=== PATIENT | female | born 1970 | race Caucasian/White ===

== ENCOUNTER 2016-12-25 03:07 | Emergency (ER) | payer MEDICAID, OTHER ==
[~2016-12-25] VITALS: Ht 160 cm; Wt 71.0 kg
[~2016-12-25 03:07] MED LIST: BUSP10 PO; IBUP800T23 PO; NICO21T T-DERMAL
[2016-12-25 03:09] VITALS: BP 123/74; PULSE 66; RESP 14; TEMP 97.9; O2SAT 96
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
[2016-12-25] MEDS ORDERED: ROBA500T PO (06:11)
[2016-12-25] MEDS ORDERED: DICL75TA PO (06:11)
== END 2016-12-25 06:29 | disposition home or self-care (01) ==
LOC: NEPB 03:07
DX: M54.5 Low back pain (principal); K21.9 Gastro-esophageal reflux disease without esophagitis; Z87.442 Personal history of urinary calculi; F17.210 Nicotine dependence, cigarettes, uncomplicated
CPT/HCPCS: 99283

== ENCOUNTER 2017-03-31 17:26 | Inpatient (IN) | payer MEDICAID ==
[~2017-03-31] VITALS: Ht 160 cm; Wt 70.0 kg
[~2017-03-31 17:26] MED LIST changes: +DICL75TA PO; +ROBA500T PO
[2017-03-31 17:28] VITALS: BP 114/62; PULSE 74; RESP 16; TEMP 99.3; O2SAT 99
--- NOTE | 2017-03-31 17:37 | PD ---
Physical Exam Time Seen by Provider: 17:35 Narrative 46yo F c/o left sided back pain w/ SOB that started 5am this morning. C/o Jimenez also. Pain is worse w/movement. +chest pain earlier; denies currently. Denies fever, cough. Patient seen in triage. VS reviewed. Awaiting bed placement. Data Data Last Documented VS Vital Signs Date Time Temp Pulse Resp B/P Pulse Ox O2 Delivery O2 Flow Rate FiO2 03/31/17 17:28 99.3 74 16 114/62 99 Room Air MDM Supervised Visit with ISIDORO: Betsy Sullivan Mar 31, 2017 17:37
[2017-03-31 20:11] VITALS: RESP 18; O2SAT 100
[2017-03-31] MEDS ORDERED: MORPHINE SULFATE 4 MG/ML INJ IV PUSH ONE ×2 (20:15→21:30)
[2017-03-31] MEDS ORDERED: SODIUM CHLORIDE 0.9% FLUSH 10 ML FLUSH IV FLUSH PRN ×2 (20:15→22:45)
[2017-03-31] MEDS ORDERED: ONDANSETRON HCL 4 MG/2 ML VIAL IVP ONE (20:15)
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
--- NOTE | 2017-03-31 20:29 | RADRPT ---
EXAM DATE/TIME: 03/31/2017 20:12 [facility] COMPARISON: No previous studies available for comparison. INDICATIONS : Short of breath. MEDICAL HISTORY : None. SURGICAL HISTORY : None. ENCOUNTER: Initial ACUITY: 1 day PAIN SCORE: 0/10 LOCATION: Bilateral chest FINDINGS: A single view of the chest demonstrates the lungs to be symmetrically aerated without evidence of mas s, infiltrate or effusion. The cardiomediastinal contours are unremarkable. Osseous structures are intact. CONCLUSION: No evidence of acute cardiopulmonary disease. Gordo De Jesus MD on March 31, 2017 at 20:27 Board Certified Radiologist. This report was verified electronically.
[2017-03-31 20:32] LABS: AUTOMATED NEUTROPHIL # 15.8 TH/MM3 (1.8-7.7); BASOPHIL # 0.1 TH/MM3 (0-0.2); BASOPHIL % 0.4 % (0.0-2.0); EOSINOPHIL # 0.1 TH/MM3 (0-0.4); EOSINOPHIL % 0.5 % (0.0-4.0); HEMATOCRIT 44.4 % (35.0-46.0); HEMO FLAGS DIFF FINAL; LYMPH % 10.2 % (9.0-44.0); LYMPHOCYTE # 1.9 TH/MM3 (1.0-4.8); MEAN CELL VOLUME 85.4 FL (80.0-100.0); MEAN CORPUSCULAR HEMOGLOBIN 28.4 PG (27.0-34.0); MEAN CORPUSCULAR HGB CONC 33.3 % (32.0-36.0); MONO % 6.3 % (0.0-8.0); NEUT % 82.6 % (16.0-70.0); PLATELET COUNT 246 TH/MM3 (150-450); RED CELL DISTRIBUTION WIDTH 14.5 % (11.6-17.2); WHITE BLOOD COUNT 19.1 TH/MM3 (4.0-11.0)
[2017-03-31 20:45] LABS: APTT (PATIENT) 31.5 SEC (24.3-30.1); INTERNATIONAL NORMALIZED RATIO 1.1 RATIO; PROTHROMBIN TIME - PATIENT 12.2 SEC (9.8-11.6)
[2017-03-31 20:47] LABS: BACTERIA, URINE MOD /hpf; BLOOD, URINE MOD (NEG); COMMENT (UR) CULTURE INDICATED; CULTURE IF INDICATED CULTURE INDICATED; GLUCOSE,URINE NEG (NEG); HYALINE CAST, URINE 3 /lpf (RARE); KETONE, URINE NEG (NEG); MUCUS URINE FEW /lpf (OCC); NITRITE,URINE NEG (NEG); SQUAMOUS EPITHELIAL CELL URINE 6 /hpf (0-5); TRANSITIONAL EPI CELLS, URINE 1 /hpf; URINE COLOR YELLOW (YELLW/STRAW)
[2017-03-31 20:58] LABS: ALT (GPT) 17 U/L (10-53); ANION GAP 12 MEQ/L (5-15); AST (GOT) 18 U/L (15-37); BICARBONATE 21.5 MEQ/L (21.0-32.0); BLOOD UREA NITROGEN 12 MG/DL (7-18); CHLORIDE 106 MEQ/L (98-107); GLOMERULAR FILTRATION RATE 75 ML/MIN (>89); MAGNESIUM 2.2 MG/DL (1.5-2.5); POTASSIUM 3.5 MEQ/L (3.5-5.1); SODIUM (NA) 139 MEQ/L (136-145)
[2017-03-31 21:03] LABS: ALKALINE PHOSPHATASE 97 U/L (45-117); CREATINE KINASE 139 U/L (26-192); TOTAL BILIRUBIN ADULT 1.1 MG/DL (0.2-1.0)
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
[2017-03-31 21:12] VITALS: BP 106/60; PULSE 64; RESP 18; O2SAT 97
[2017-03-31 21:15] LABS: CKMB 0.7 NG/ML (0.5-3.6)
[2017-03-31] MEDS ORDERED: KETOROLAC TROMETHAMINE 30 MG/ML (IVP) VIAL IV PUSH ONE (21:30)
[2017-03-31] MEDS ORDERED: cefTRIAXone INJ 1,000 MG in SODIUM CHLORIDE 0.9% INJ 100 ML IV ONE (21:30)
[2017-03-31] MEDS ORDERED: CIPROFLOXACIN 500 MG TAB PO ONE (21:30)
[2017-03-31] MEDS ORDERED: SODIUM CHLOR 0.9% 1000 ML INJ 1,000 ML IV ONE (21:45)
[2017-03-31] MEDS: SODIUM CHLOR 0.9% 1000 ML INJ 1,000 ML IV SCH (22:44)
[2017-03-31] MEDS ORDERED: NALOXONE HCL 0.4 MG/ML AMP IV PRN (22:45)
[2017-03-31 23:32] VITALS: BP 102/57; PULSE 60; RESP 18; O2SAT 100
[2017-04-01] VITALS (9 sets, daily range): BP systolic 91–117; BP diastolic 54–71; PULSE 49–65; RESP 18; TEMP 98.2–99.6; O2SAT 95–98
--- NOTE | 2017-04-01 00:10 | PD ---
Data Data Last Documented VS Vital Signs Date Time Temp Pulse Resp B/P Pulse Ox O2 Delivery O2 Flow Rate FiO2 03/31/17 21:12 64 18 106/60 97 Room Air 03/31/17 17:28 99.3 Orders Complete Blood Count With Diff (03/31/17 20:07) Comprehensive Metabolic Panel (03/31/17 20:07) Lipase (03/31/17 20:07) Prothrombin Time / Inr (Pt) (03/31/17 20:07) Act Partial Throm Time (Ptt) (03/31/17 20:07) Urinalysis - C+S If Indicated (03/31/17 20:07) Ct Abd/Pel W/O Iv Contrast (03/31/17 20:07) Iv Access Insert/Monitor (03/31/17 20:07) Ecg Monitoring (03/31/17 20:07) Oximetry (03/31/17 20:07) Morphine Inj (Morphine Inj) (03/31/17 20:15) Ondansetron Inj (Zofran Inj) (03/31/17 20:15) Sodium Chloride 0.9% Flush (Ns Flush) (03/31/17 20:15) Electrocardiogram (03/31/17 20:07) Chest, Single Ap (03/31/17 20:07) Ckmb (Isoenzyme) Profile (03/31/17 20:07) Magnesium (Mg) (03/31/17 20:07) Troponin I (03/31/17 20:07) Urine Culture (03/31/17 20:15) CKMB (03/31/17 20:15) CKMB% (03/31/17 20:15) Ceftriaxone Inj (Rocephin Inj) (03/31/17 21:30) Morphine Inj (Morphine Inj) (03/31/17 21:30) Ketorolac Inj (Toradol Inj) (03/31/17 21:30) Ciprofloxacin (Cipro) (03/31/17 21:30) Blood Culture (03/31/17 21:30) Sodium Chlor 0.9% 1000 Ml Inj (Ns 1000 M (03/31/17 21:45) Admit Order (Ed Use Only) (03/31/17 22:31) Place In Observation (03/31/17 ) Vital Signs (Adult) Q4H (03/31/17 22:32) Activity Oob With Assistance (03/31/17 22:32) Farm Specialist / Telemetry .CONTINUOUS (03/31/17 22:32) Diet Heart Healthy (04/01/17 Breakfast) Sodium Chlor 0.9% 1000 Ml Inj (Ns 1000 M (03/31/17 23:00) Sodium Chloride 0.9% Flush (Ns Flush) (03/31/17 22:45) Sodium Chloride 0.9% Flush (Ns Flush) (04/01/17 09:00) Basic Metabolic Panel (Bmp) (04/01/17 06:00) Complete Blood Count With Diff (04/01/17 06:00) Case Management Consult (03/31/17 22:32) Naloxone Inj (Narcan Inj) (03/31/17 22:45) Labs Laboratory Tests Test 03/31/17 20:15 White Blood Count 19.1 TH/MM3 Red Blood Count 5.20 MIL/MM3 Hemoglobin 14.8 GM/DL Hematocrit 44.4 % Mean Corpuscular Volume 85.4 FL Mean Corpuscular Hemoglobin 28.4 PG Mean Corpuscular Hemoglobin 33.3 % Concent Red Cell Distribution Width 14.5 % Platelet Count 246 TH/MM3 Mean Platelet Volume 8.2 FL Neutrophils (%) (Auto) 82.6 % Lymphocytes (%) (Auto) 10.2 % Monocytes (%) (Auto) 6.3 % Eosinophils (%) (Auto) 0.5 % Basophils (%) (Auto) 0.4 % Neutrophils # (Auto) 15.8 TH/MM3 Lymphocytes # (Auto) 1.9 TH/MM3 Monocytes # (Auto) 1.2 TH/MM3 Eosinophils # (Auto) 0.1 TH/MM3 Basophils # (Auto) 0.1 TH/MM3 CBC Comment DIFF FINAL Differential Comment Prothrombin Time 12.2 SEC Prothromb Time International 1.1 RATIO Ratio Activated Partial 31.5 SEC Thromboplast Time Urine Color YELLOW Urine Turbidity HAZY Urine pH 6.0 Urine Specific [place] 1.022 Urine Protein 30 mg/dL Urine Glucose (UA) NEG mg/dL Urine Ketones NEG mg/dL Urine Occult Blood MOD Urine Nitrite NEG Urine Bilirubin NEG Urine Urobilinogen 2.0 MG/DL Urine Leukocyte Esterase SMALL Urine RBC 4 /hpf Urine WBC 13 /hpf Urine Squamous Epithelial 6 /hpf Cells Urine Transitional Epithelial 1 /hpf Cells Urine Bacteria MOD /hpf Urine Hyaline Casts 3 /lpf Urine Mucus FEW /lpf Microscopic Urinalysis Comment CULTURE INDICATED Sodium Level 139 MEQ/L Potassium Level 3.5 MEQ/L Chloride Level 106 MEQ/L Carbon Dioxide Level 21.5 MEQ/L Anion Gap 12 MEQ/L Blood Urea Nitrogen 12 MG/DL Creatinine 0.81 MG/DL Estimat Glomerular Filtration 75 ML/MIN Rate Random Glucose 83 MG/DL Calcium Level 8.8 MG/DL Magnesium Level 2.2 MG/DL Total Bilirubin 1.1 MG/DL Aspartate Amino Transf 18 U/L (AST/SGOT) Alanine Aminotransferase 17 U/L (ALT/SGPT) Alkaline Phosphatase 97 U/L Total Creatine Kinase 139 U/L Creatine Kinase MB 0.7 NG/ML Troponin I LESS THAN 0.02 NG/ML Total Protein 7.8 GM/DL Albumin 3.6 GM/DL Lipase 120 U/L MDM Supervised Visit with ISIDORO: Yes Narrative Course The history, exam, and medical decision-making in the associated midlevel provider note were completed with my assistance. I reviewed and agree with the findings presented. I attest that I had a [id number] encounter with the patient on the same day, and personally performed and documented my assessment and findings in the medical record. *My assessment and Findings: This is a 46-year-old female with a history of IV drug use although she reports she hasn't used in 2 years who presents to the emergency department with flank pain and nausea. Patient has a leukocytosis of 19. CT imaging demonstrates pyelonephritis. Patient will be admitted given her history of IV drug use, and poor pain control here in the emergency department. Diagnosis Primary Impression: Pyelonephritis Additional Impression: Pancreatic lesion Scripts No Active Prescriptions or Reported Meds Condition: Stable Keisha Juan MD Apr 01, 2017 00:09
[2017-04-01] MEDS: KETOROLAC TROMETHAMINE 30 MG/ML (IVP) VIAL IV PUSH PRN ×2 (04:26→10:09)
--- NOTE | 2017-04-01 05:08 | HHI.HP ---
[facility] Tobi Norris Admission Diagnosis pyelonephritis, pancreatic lesion, history of IV drug use Diagnoses: Chief Complaint: abdominal pain, back pain Travel History International Travel<30 Days: No Contact w/Intl Traveler <30 Da: No Traveled to Known Affected Are: No History of Present Illness History patient, ER PA communication, interview of the records. Patient reported that she came to the hospital because yesterday, she all of a sudden started having left flank pain with left abdominal pain. She denies any fever. Denies any nausea/vomiting/diarrhea. Denies burning urination or pain on urination. she never had similar pain like this before. Apart from the above, patient denies any chest pain/shortness of breath/ palpitations/dizziness/focal weakness. In the emergency room, imaging studies revealed pyelonephritis. Review of Systems Except as stated in HPI: all other systems reviewed are Neg Past Family Social History Past Medical History none Past Surgical History 2 c sections tmj colostomy and reversal x 2 Allergies: Coded Allergies: MRI PRECAUTION (Verified Allergy, Severe, BULLET IN LOW BACK AND L. LEG, ) Family History depression Social History a pack a day no drinking used to use drugs, quit 2 yrs ago Physical Exam Vital Signs Vital Signs Date Time Temp Pulse Resp B/P Pulse Ox O2 Delivery O2 Flow Rate FiO2 04/01/17 03:38 99.1 64 18 96/56 95 04/01/17 00:31 99.2 61 18 91/54 98 04/01/17 00:30 57 03/31/17 23:32 60 18 102/57 100 Room Air 03/31/17 21:12 64 18 106/60 97 Room Air 03/31/17 20:11 18 100 Room Air 03/31/17 17:28 99.3 74 16 114/62 99 Room Air Physical Exam GENERAL: This is a well-nourished, well-developed patient, in no apparent distress. SKIN: No rashes, ecchymoses or lesions. Cool and dry. HEAD: Atraumatic. Normocephalic. No temporal or scalp tenderness. EYES: No scleral icterus. No injection or drainage. ENT: Nose without bleeding, purulent drainage or septal hematoma. Airway patent. NECK: Trachea midline. No JVD CARDIOVASCULAR: Regular rate and rhythm without murmurs, gallops, or rubs. RESPIRATORY: Clear to auscultation. Breath sounds equal bilaterally. No wheezes , rales, or rhonchi. GASTROINTESTINAL: Abdomen soft, tenderness at left lower quadrant and left flank, nondistended. No guarding. MUSCULOSKELETAL: Extremities without clubbing, cyanosis, or edema. No calf tenderness. NEUROLOGICAL: Awake and alert. Motor and sensory grossly within normal limits. Normal speech. Laboratory Laboratory Tests Test 03/31/17 20:15 White Blood Count 19.1 Red Blood Count 5.20 Hemoglobin 14.8 Hematocrit 44.4 Mean Corpuscular Volume 85.4 Mean Corpuscular Hemoglobin 28.4 Mean Corpuscular Hemoglobin 33.3 Concent Red Cell Distribution Width 14.5 Platelet Count 246 Mean Platelet Volume 8.2 Neutrophils (%) (Auto) 82.6 Lymphocytes (%) (Auto) 10.2 Monocytes (%) (Auto) 6.3 Eosinophils (%) (Auto) 0.5 Basophils (%) (Auto) 0.4 Neutrophils # (Auto) 15.8 Lymphocytes # (Auto) 1.9 Monocytes # (Auto) 1.2 Eosinophils # (Auto) 0.1 Basophils # (Auto) 0.1 CBC Comment DIFF FINAL Differential Comment Prothrombin Time 12.2 Prothromb Time International 1.1 Ratio Activated Partial 31.5 Thromboplast Time Urine Color YELLOW Urine Turbidity HAZY Urine pH 6.0 Urine Specific [place] 1.022 Urine Protein 30 Urine Glucose (UA) NEG Urine Ketones NEG Urine Occult Blood MOD Urine Nitrite NEG Urine Bilirubin NEG Urine Urobilinogen 2.0 Urine Leukocyte Esterase SMALL Urine RBC 4 Urine WBC 13 Urine Squamous Epithelial 6 Cells Urine Transitional Epithelial 1 Cells Urine Bacteria MOD Urine Hyaline Casts 3 Urine Mucus FEW Microscopic Urinalysis Comment CULTURE INDICATED Sodium Level 139 Potassium Level 3.5 Chloride Level 106 Carbon Dioxide Level 21.5 Anion Gap 12 Blood Urea Nitrogen 12 Creatinine 0.81 Estimat Glomerular Filtration 75 Rate Random Glucose 83 Calcium Level 8.8 Magnesium Level 2.2 Total Bilirubin 1.1 Aspartate Amino Transf 18 (AST/SGOT) Alanine Aminotransferase 17 (ALT/SGPT) Alkaline Phosphatase 97 Total Creatine Kinase 139 Creatine Kinase MB 0.7 Troponin I LESS THAN 0.02 Total Protein 7.8 Albumin 3.6 Lipase 120 Date/Time Procedure Status Source Growth 03/31/17 21:40 Aerobic Blood Culture Received Blood Peripheral Pending 03/31/17 21:40 Anaerobic Blood Culture Received Blood Peripheral Pending 03/31/17 20:15 Urine Culture Received Urine Random Urine Pending Result Diagram: 03/31/17201403/31/172014 Imaging Last 48 hours Impressions Chest X-Ray 03/31/172006 Signed Impressions: Service Date/Time: March 20:12 - CONCLUSION: No evidence of acute cardiopulmonary disease. Gordo De Jesus MD Abdomen/Pelvis CT 03/31/172006 Signed Impressions: Service Date/Time: March 20:41 - CONCLUSION: 1. Left perinephric edema of unclear etiology. Pyelonephritis would be in the differential and please correlate clinically. The CT does suggest some wall thickening of the urinary bladder as can be seen in the setting of cystitis as well. No radiopaque stone seen. No hydronephrosis or hydroureter. 2. 13 mm hypodensity of the body of the pancreas and appears to be a cystic lesion with a dependently layering calcification within it. Outpatient MRI of the abdomen with and without contrast recommended for attempted complete characterization. 3. Previous small bowel resection and anastomosis without evidence of an acute complication. Gordo De Jesus MD Assessment and Plan Assessment and Plan Impression: Pyelonephritis/cystitis leukocytosis with left shift 13 mm hypodensity of the body of the pancreas and appears to be a cystic lesion - Outpatient MRI of the abdomen with and without contrast recommended Plan: IV hydration. Pain control. Cipro 400 mg IV every 12 hours. We'll follow culture results. CT abdomen and pelvispersonally reviewed. EKGreviewed. No evidence of acute infarct/hemorrhage DVT prophylaxiswith Lovenox. Discussed Condition With Patient, ER PA, nursing staff Aries Hernandez MD Apr 01, 2017 05:08
[2017-04-01 08:00] LABS: AUTOMATED NEUTROPHIL # 9.6 TH/MM3 (1.8-7.7); BASOPHIL % 0.2 % (0.0-2.0); EOSINOPHIL # 0.1 TH/MM3 (0-0.4); EOSINOPHIL % 0.5 % (0.0-4.0); HEMATOCRIT 39.2 % (35.0-46.0); HEMO FLAGS DIFF FINAL; LYMPH % 12.1 % (9.0-44.0); LYMPHOCYTE # 1.5 TH/MM3 (1.0-4.8); MEAN CELL VOLUME 86.3 FL (80.0-100.0); MEAN CORPUSCULAR HEMOGLOBIN 28.6 PG (27.0-34.0); MEAN CORPUSCULAR HGB CONC 33.2 % (32.0-36.0); MONO % 8.1 % (0.0-8.0); NEUT % 79.1 % (16.0-70.0); PLATELET COUNT 190 TH/MM3 (150-450); RED BLOOD COUNT 4.54 MIL/MM3 (4.00-5.30); RED CELL DISTRIBUTION WIDTH 14.1 % (11.6-17.2); WHITE BLOOD COUNT 12.1 TH/MM3 (4.0-11.0)
[2017-04-01] MEDS: SODIUM CHLORIDE 0.9% FLUSH 10 ML FLUSH IV FLUSH SCH ×2 (08:07→19:34)
[2017-04-01] MEDS: PANTOPRAZOLE SODIUM 40 MG VIAL IV PUSH SCH (08:07)
[2017-04-01] MEDS: CIPROFLOXACIN 400 MG PREMIX 200 ML IV SCH ×2 (08:10→18:02)
[2017-04-01] MEDS: SODIUM CHLOR 0.9% 1000 ML INJ 1,000 ML IV SCH ×2 (08:10→18:02)
[2017-04-01 08:38] LABS: BICARBONATE 22.4 MEQ/L (21.0-32.0); POTASSIUM 3.5 MEQ/L (3.5-5.1)
[2017-04-01] MEDS ORDERED: ACETAMINOPHEN 325 MG TAB PO PRN (10:30)
[2017-04-01] MEDS ORDERED: ONDANSETRON HCL 4 MG/2 ML VIAL IV PUSH PRN (15:45)
[2017-04-01] MEDS ORDERED: traMADol HCL 50 MG TAB PO PRN (15:45)
--- NOTE | 2017-04-01 15:46 | HHI.PR ---
Subjective Remarks Follow-up for pyelonephritis. The patient continues to complain of constant, severe left flank pain. The pain radiates into her groin. She denies any fevers, chills, dysuria, vomiting. She reports nausea and no appetite and has not eaten today. She complains of a headache, denies any weakness. She doesn' t feel much benefit from current pain medication. Objective Vitals Vital Signs Date Time Temp Pulse Resp B/P Pulse Ox O2 Delivery O2 Flow Rate FiO2 04/01/17 12:25 98.5 52 18 102/62 97 04/01/17 07:30 99.4 60 18 106/63 97 04/01/17 03:38 99.1 64 18 96/56 95 04/01/17 00:31 99.2 61 18 91/54 98 04/01/17 00:30 57 03/31/17 23:32 60 18 102/57 100 Room Air 03/31/17 21:12 64 18 106/60 97 Room Air 03/31/17 20:11 18 100 Room Air 03/31/17 17:28 99.3 74 16 114/62 99 Room Air Result Diagram: 04/01/17 0720 04/01/17 0720 Imaging Last Impressions Chest X-Ray 03/31/172006 Signed Impressions: Service Date/Time: March 20:12 - CONCLUSION: No evidence of acute cardiopulmonary disease. Gordo De Jesus MD Abdomen/Pelvis CT 03/31/172006 Signed Impressions: Service Date/Time: March 20:41 - CONCLUSION: 1. Left perinephric edema of unclear etiology. Pyelonephritis would be in the differential and please correlate clinically. The CT does suggest some wall thickening of the urinary bladder as can be seen in the setting of cystitis as well. No radiopaque stone seen. No hydronephrosis or hydroureter. 2. 13 mm hypodensity of the body of the pancreas and appears to be a cystic lesion with a dependently layering calcification within it. Outpatient MRI of the abdomen with and without contrast recommended for attempted complete characterization. 3. Previous small bowel resection and anastomosis without evidence of an acute complication. Gordo De Jesus MD Objective Remarks GENERAL: Well-developed well-nourished. In no acute distress. SKIN: Warm and dry. No lesions noted. HEENT: Normocephalic. Pupils equal and round. Mucous membranes pink and moist. CARDIOVASCULAR: Regular rate and rhythm. No murmur appreciated. RESPIRATORY: No accessory muscle use. Clear to auscultation. Breath sounds equal bilaterally. GASTROINTESTINAL: Abdomen soft, LLQ and suprapubic TTP, nondistended. Bowel sounds x4. MUSCULOSKELETAL: No obvious deformities. No clubbing or cyanosis. No edema. NEUROLOGICAL: Awake and alert. No focal neurological deficits. Moves upper and lower extremities spontaneously. Normal speech. PSYCHIATRIC: Appropriate mood and affect; insight and judgment normal. A/P Assessment and Plan 46-year-old female who presented with pyelonephritis Pyelonephritis/cystitis: Presented with left flank pain and nausea. Reviewed: Abdominal CT with left perinephric edema suggesting pyelonephritis; wall thickening of the urinary bladder consistent with cystitis; no stone or hydroureter. UA with evidence of infection. WBC elevated 19.1->12.1. Urine culture preliminarily growing gram-negative rods. -Continue IV Cipro and follow-up urine culture -Pain control with [place] and IV Toradol -IVF -Antiemetics as needed Pancreas cystic lesion: Incidentally seen on Abdominal CT. Outpatient MRI of the abdomen with and without contrast recommended. DVT prophylaxis: Ambulatory. SCDs. GI prophylaxis: Protonix Discharge Planning Discussed with case management, patient meets inpatient criteria. Beau Christy Apr 01, 2017 15:46
[2017-04-01] MEDS: ACETAMINOPHEN/HYDROcodone 325 MG/5 MG TAB PO PRN ×2 (16:20→22:18)
--- NOTE | 2017-04-01 22:37 | EKG ---
Date Performed: 03/31/2017 Time Performed: 20:02:43 PTAGE: 46 years EKG: Sinus rhythm WITH SHORT MO INTERVAL NONSPECIFIC ST & T-WAVE ABNORMALITY BORDERLINE ECG PREVIOUS TRACING : 06/08/2015 16.08 DOCTOR: An Silva Interpretating Date/Time 04/01/2017 22:35:09
[2017-04-02 03:41] VITALS: BP 105/70; PULSE 51; RESP 17; TEMP 98.3; O2SAT 96
[2017-04-02] MEDS: ACETAMINOPHEN/HYDROcodone 325 MG/5 MG TAB PO PRN (05:56)
[2017-04-02] MEDS: CIPROFLOXACIN 400 MG PREMIX 200 ML IV SCH (06:00)
[2017-04-02] MEDS: SODIUM CHLOR 0.9% 1000 ML INJ 1,000 ML IV SCH (06:08)
--- NOTE | 2017-04-02 08:16 | HHI.DS ---
Discharge Summary Admission Date Apr 01, 2017 at 15:59 Discharge Date: Apr 02, 2017 Admitting Diagnosis pyelonephritis, pancreatic lesion, history of IV drug use (1) Pyelonephritis ICD Code: N12 Diagnosis: Principal Procedures none Brief History - From Admission History patient, ER PA communication, interview of the records. Patient reported that she came to the hospital because yesterday, she all of a sudden started having left flank pain with left abdominal pain. She denies any fever. Denies any nausea/vomiting/diarrhea. Denies burning urination or pain on urination. she never had similar pain like this before. Apart from the above, patient denies any chest pain/shortness of breath/ palpitations/dizziness/focal weakness. In the emergency room, imaging studies revealed pyelonephritis. CBC/BMP: 04/01/17 0720 04/01/17 0720 Significant Findings Laboratory Tests Test 03/31/17 04/01/17 20:15 07:20 Prothrombin Time 12.2 SEC (9.8-11.6) Activated Partial 31.5 SEC Thromboplast Time (24.3-30.1) Estimat Glomerular Filtration 75 ML/MIN (>89) 88 ML/MIN (>89) Rate Total Bilirubin 1.1 MG/DL (0.2-1.0) Troponin I LESS THAN 0.02 NG/ML (0.02-0.05) White Blood Count 19.1 TH/MM3 12.1 TH/MM3 (4.0-11.0) (4.0-11.0) Neutrophils (%) (Auto) 82.6 % 79.1 % (16.0-70.0) (16.0-70.0) Neutrophils # (Auto) 15.8 TH/MM3 9.6 TH/MM3 (1.8-7.7) (1.8-7.7) Monocytes # (Auto) 1.2 TH/MM3 1.0 TH/MM3 (0-0.9) (0-0.9) Urine Turbidity HAZY (CLEAR) Urine Protein 30 mg/dL (NEG-TRACE) Urine Occult Blood MOD (NEG) Urine Leukocyte Esterase SMALL (NEG) Urine RBC 4 /hpf (0-3) Urine WBC 13 /hpf (0-5) Urine Bacteria MOD /hpf (NONE) Urine Mucus FEW /lpf (OCC) Monocytes (%) (Auto) 8.1 % (0.0-8.0) Chloride Level 108 MEQ/L (98-107) Calcium Level 8.0 MG/DL (8.5-10.1) Imaging Last Impressions Chest X-Ray 03/31/172006 Signed Impressions: Service Date/Time: March 20:12 - CONCLUSION: No evidence of acute cardiopulmonary disease. Gordo De Jesus MD Abdomen/Pelvis CT 03/31/172006 Signed Impressions: Service Date/Time: March 20:41 - CONCLUSION: 1. Left perinephric edema of unclear etiology. Pyelonephritis would be in the differential and please correlate clinically. The CT does suggest some wall thickening of the urinary bladder as can be seen in the setting of cystitis as well. No radiopaque stone seen. No hydronephrosis or hydroureter. 2. 13 mm hypodensity of the body of the pancreas and appears to be a cystic lesion with a dependently layering calcification within it. Outpatient MRI of the abdomen with and without contrast recommended for attempted complete characterization. 3. Previous small bowel resection and anastomosis without evidence of an acute complication. Gordo De Jesus MD PE at Discharge GENERAL: Well-developed well-nourished. In no acute distress. SKIN: Warm and dry. No lesions noted. HEENT: Normocephalic. Pupils equal and round. Mucous membranes pink and moist. CARDIOVASCULAR: Regular rate and rhythm. No murmur appreciated. RESPIRATORY: No accessory muscle use. Clear to auscultation. Breath sounds equal bilaterally. GASTROINTESTINAL: Abdomen soft, LLQ and suprapubic TTP, nondistended. Bowel sounds x4. MUSCULOSKELETAL: No obvious deformities. No clubbing or cyanosis. No edema. NEUROLOGICAL: Awake and alert. No focal neurological deficits. Moves upper and lower extremities spontaneously. Normal speech. PSYCHIATRIC: Appropriate mood and affect; insight and judgment normal. Hospital Course 46-year-old female who presented with pyelonephritis Pyelonephritis/cystitis: U cx with E Coli pansensitive Presented with left flank pain and nausea. Reviewed: Abdominal CT with left perinephric edema suggesting pyelonephritis; wall thickening of the urinary bladder consistent with cystitis; no stone or hydroureter. UA with evidence of infection. WBC elevated 19.1 on admission improved ->12.1. Trend WBC. Urine culture preliminarily growing gram-negative rods. Awaiting ID and Sensitivity. Might DC later today. Continue IV Cipro and follow-up urine culture. Switch to po abx x 10 days at DC Pain control with [place] and IV Toradol Continue IVF Antiemetics as needed Headache: did not resolve with tylenol ( also painmes as above) , give Fioricet. No change in vision or sensory/motor deficit. Pancreas cystic lesion: Incidentally seen on Abdominal CT. Outpatient MRI of the abdomen with and without contrast recommended. DVT prophylaxis: Ambulatory. SCDs. GI prophylaxis: Protonix Discharge Planning DC in stable condition. to follow up as OP with PCP and consultants. Pt Condition on Discharge: Stable Discharge Disposition: Discharge Home Discharge Time: > 30 minutes Discharge Instructions DIET: Follow Instructions for: As Tolerated, No Restrictions Activities you can perform: Regular-No Restrictions Follow up Referrals: PCP Follow-up - 1 Week with Ambrose Rodriguez New Medications: Ciprofloxacin (Cipro) 500 Mg Tab 500 MG PO BID Infection #20 Ref 0 TAB Delmi Corrigan MD Apr 02, 2017 08:16
--- NOTE | 2017-04-02 08:26 | HHI.PR ---
Subjective Remarks Patient says she has some headache since yesterday. Will give Fioricet. No sensory or motor deficit. No n/v/d/c. Says she is not eating much. No fever or chills. Pain in her back is controlled. Objective Vitals Vital Signs Date Time Temp Pulse Resp B/P Pulse Ox O2 Delivery O2 Flow Rate FiO2 04/02/17 03:41 98.3 51 17 105/70 96 04/01/17 23:37 98.2 49 18 102/70 97 04/01/17 20:00 53 04/01/17 19:39 98.5 64 18 105/71 96 04/01/17 15:49 99.6 65 18 117/56 98 04/01/17 12:25 98.5 52 18 102/62 97 I/O 04/01/17 04/01/17 04/01/17 04/02/17 04/02/17 04/02/17 07:00 15:00 23:00 07:00 15:00 23:00 Intake Total 1230 ml Balance 1230 ml Intake Oral 1230 ml # Voids 2 1 Result Diagram: 04/01/17 0720 04/01/17 0720 Imaging Last Impressions Chest X-Ray 03/31/172006 Signed Impressions: Service Date/Time: March 20:12 - CONCLUSION: No evidence of acute cardiopulmonary disease. Gordo De Jesus MD Abdomen/Pelvis CT 03/31/172006 Signed Impressions: Service Date/Time: March 20:41 - CONCLUSION: 1. Left perinephric edema of unclear etiology. Pyelonephritis would be in the differential and please correlate clinically. The CT does suggest some wall thickening of the urinary bladder as can be seen in the setting of cystitis as well. No radiopaque stone seen. No hydronephrosis or hydroureter. 2. 13 mm hypodensity of the body of the pancreas and appears to be a cystic lesion with a dependently layering calcification within it. Outpatient MRI of the abdomen with and without contrast recommended for attempted complete characterization. 3. Previous small bowel resection and anastomosis without evidence of an acute complication. Gordo De Jesus MD Objective Remarks GENERAL: 46 yo F, well-developed well-nourished, doesn't appear in acute distress. SKIN: Warm and dry. No lesions noted. HEENT: Normocephalic. Pupils equal and round. Mucous membranes pink and moist. CARDIOVASCULAR: Regular rate and rhythm. No murmur appreciated. RESPIRATORY: No accessory muscle use. Clear to auscultation. Breath sounds equal bilaterally. GASTROINTESTINAL: Abdomen soft, LLQ and suprapubic TTP, nondistended. Bowel sounds x4. MUSCULOSKELETAL: No obvious deformities. No clubbing or cyanosis. No edema. NEUROLOGICAL: Awake and alert. No focal neurological deficits. Moves upper and lower extremities spontaneously. Normal speech. PSYCHIATRIC: Appropriate mood and affect; insight and judgment normal. A/P Assessment and Plan 46-year-old female who presented with pyelonephritis Pyelonephritis/cystitis: Presented with left flank pain and nausea. Reviewed: Abdominal CT with left perinephric edema suggesting pyelonephritis; wall thickening of the urinary bladder consistent with cystitis; no stone or hydroureter. UA with evidence of infection. WBC elevated 19.1 on admission improved ->12.1. Trend WBC. Urine culture preliminarily growing gram-negative rods. Awaiting ID and Sensitivity. Might DC later today. Continue IV Cipro and follow-up urine culture Pain control with [place] and IV Toradol Continue IVF Antiemetics as needed Headache: did not resolve with tylenol ( also painmes as above) , give Fioricet. No change in vision or sensory/motor deficit. Pancreas cystic lesion: Incidentally seen on Abdominal CT. Outpatient MRI of the abdomen with and without contrast recommended. DVT prophylaxis: Ambulatory. SCDs. GI prophylaxis: Protonix Discharge Planning Poss DC later today if improves, and cultures back Delmi Corrigan MD Apr 02, 2017 08:26
[2017-04-02 08:42] VITALS: BP 97/53; PULSE 50; RESP 18; TEMP 98.6; O2SAT 96
[2017-04-02] MEDS: PANTOPRAZOLE SODIUM 40 MG VIAL IV PUSH SCH (09:19)
[2017-04-02] MEDS: SODIUM CHLORIDE 0.9% FLUSH 10 ML FLUSH IV FLUSH SCH (09:20)
[2017-04-02] MEDS ORDERED: ACETAMIN 325 MG/BUTALBITAL 50 MG/CAFFEINE 40 MG TAB PO ONE (10:00)
[2017-04-02 12:25] VITALS: BP 108/63; PULSE 70; RESP 20; TEMP 98; O2SAT 96
[2017-04-02 12:51] LABS: AUTOMATED NEUTROPHIL # 4.4 TH/MM3 (1.8-7.7); BASOPHIL % 0.4 % (0.0-2.0); EOSINOPHIL # 0.1 TH/MM3 (0-0.4); EOSINOPHIL % 1.4 % (0.0-4.0); HEMATOCRIT 38.3 % (35.0-46.0); HEMO FLAGS DIFF FINAL; LYMPHOCYTE # 1.8 TH/MM3 (1.0-4.8); MEAN CORPUSCULAR HEMOGLOBIN 27.9 PG (27.0-34.0); MEAN CORPUSCULAR HGB CONC 31.7 % (32.0-36.0); MONO % 11.6 % (0.0-8.0); NEUT % 61.6 % (16.0-70.0); PLATELET COUNT 170 TH/MM3 (150-450); RED BLOOD COUNT 4.35 MIL/MM3 (4.00-5.30); RED CELL DISTRIBUTION WIDTH 14.4 % (11.6-17.2); WHITE BLOOD COUNT 7.2 TH/MM3 (4.0-11.0)
[2017-04-02 13:25] LABS: ALKALINE PHOSPHATASE 75 U/L (45-117); ALT (GPT) 14 U/L (10-53); ANION GAP 7 MEQ/L (5-15); AST (GOT) 13 U/L (15-37); BICARBONATE 24.9 MEQ/L (21.0-32.0); BLOOD UREA NITROGEN 8 MG/DL (7-18); CHLORIDE 111 MEQ/L (98-107); GLOMERULAR FILTRATION RATE 101 ML/MIN (>89); POTASSIUM 3.6 MEQ/L (3.5-5.1); SODIUM (NA) 143 MEQ/L (136-145); TOTAL BILIRUBIN ADULT 0.4 MG/DL (0.2-1.0)
[2017-04-02] MEDS ORDERED: CIPR-9 PO (13:32)
== END 2017-04-02 15:07 | disposition home or self-care (01) | DRG 690 ==
LOC: NEPE 17:26 → NEDA 22:33 → NEPGCP 23:48 → OBSVTOIN 04-01 15:59
PROVIDERS: ADMIT Hospitalist; ATTEND Hospitalist
DX: N12 Tubulo-interstitial nephritis, not specified as acute or chronic (principal); B96.20 Unspecified Escherichia coli [E. coli] as the cause of diseases classified elsewhere; F17.210 Nicotine dependence, cigarettes, uncomplicated; K21.9 Gastro-esophageal reflux disease without esophagitis; K86.9 Disease of pancreas, unspecified; R51 Headache
CPT/HCPCS: 71010; 74176; 80048; 80053; 81001; 82550; 82552; 83690; 83735; 84484; 85025; 85610; 85730; 87040; 87077; 87086; 87186; 93005; 96365; 96375; C9113; G0378; J0696; J0744; J1885; J2270; J2405; J7030

== ENCOUNTER 2017-12-01 05:08 | Emergency (ER) | payer SELFPAY ==
[~2017-12-01] VITALS: Ht 160 cm; Wt 55.0 kg
[~2017-12-01 05:08] MED LIST changes: -BUSP10 PO; +CIPR-9 PO; -DICL75TA PO; -IBUP800T23 PO; -NICO21T T-DERMAL; -ROBA500T PO
[2017-12-01 05:09] VITALS: BP 123/78; PULSE 91; RESP 16; TEMP 97.7; O2SAT 98
[2017-12-01] MEDS ORDERED: POLY10O EACH EYE (05:43)
[2017-12-01] MEDS ORDERED: PROPARACAINE HCL 0.5% OPHT SOLN 15 ML BTL EACH EYE ONE (05:45)
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
== END 2017-12-01 08:54 | disposition home or self-care (01) ==
LOC: NEPD 05:08
DX: H10.9 Unspecified conjunctivitis (principal); Z72.0 Tobacco use
CPT/HCPCS: 99283